=== PATIENT | male | born 1935 | race African-American/Black ===

== ENCOUNTER 2023-01-01 09:49 | Inpatient (IN) | payer BC, MEDICARE ==
[~2023-01-01] VITALS: Ht 170.2 cm; Wt 68.0 kg
[2023-01-01 11:50] LABS: HEMATOCRIT. 41.6 % (42.0-52.0); MEAN CORPUSCULAR HEMOGLOBIN 32.1 pg (28.0-32.0); MEAN CORPUSCULAR VOLUME 95.6 fL (80.0-94.0); MEAN PLATELET VOLUME 9.5 fl (7.4-10.4); PLATELET 158 x1000/uL (130-400); RED BLOOD CELL COUNT 4.35 mill/uL (4.7-6.1); RED CELL DISTRIBUTION WIDTH 14.4 % (11.6-14.6)
[2023-01-01 12:05] LABS: INR 1.1; PROTHROMBIN TIME 11.9 sec (9.6-11.0)
[2023-01-01 12:13] LABS: PLATELET ESTIMATE NORMAL
[2023-01-01 13:11] LABS: CHLORIDE 108 mEq/L (98-107)
[2023-01-01 14:18] LABS: ETHANOL BLOOD < 10 mg/dL
[2023-01-01] MEDS ORDERED: FUROSEMIDE 40MG/4ML VIAL IVP ONE (14:30)
[2023-01-01] MEDS ORDERED: AZITHROMYCIN 500 MG TABLET PO ONE (14:30)
[2023-01-01] MEDS ORDERED: CEFTRIAXONE 1 G PREMIX 50 ML IV ONE (14:30)
[2023-01-01] MEDS ORDERED: ASPIRIN 325MG EC TABLET PO ONE (14:30)
[2023-01-01] MEDS ORDERED: DOCUSATE SODIUM 100MG CAPSULE PO PRN (19:45)
[2023-01-01] MEDS ORDERED: CLONIDINE 0.1MG TABLET PO PRN (19:45)
[2023-01-01] MEDS ORDERED: ONDANSETRON HCL 4MG/2ML INJ IV PRN (19:45)
[2023-01-01] MEDS ORDERED: DEXTROSE 50% WATER 50ML SYRINGE IV PRN (19:45)
[2023-01-01] MEDS ORDERED: MAGNESIUM/ALUMINUM HYDROXIDE/SIMETHICONE 30ML UDC PO PRN (19:45)
[2023-01-01] MEDS ORDERED: DIPHENHYDRAMINE 50MG/ML VIAL IV PRN (19:45)
[2023-01-01] MEDS ORDERED: IPRATROPIUM/ALBUTEROL 0.5-3(2.5)MG/3ML NEB HHN PRN (19:45)
[2023-01-01] MEDS ORDERED: GUAIFENESIN 200MG/10ML SUGAR FREE UDC PO PRN (19:45)
[2023-01-01] MEDS ORDERED: ACETAMINOPHEN 325MG TABLET PO PRN ×2 (19:45)
[2023-01-01] MEDS ORDERED: AMLODIPINE 10MG TABLET PO SCH (20:00)
[2023-01-01] MEDS ORDERED: AZITHROMYCIN 500 MG TABLET PO NR (20:15)
[2023-01-01] MEDS ORDERED: CEFTRIAXONE 1 G PREMIX 50 ML IV SCH (20:15)
[2023-01-01] MEDS ORDERED: CEFTRIAXONE 1 G PREMIX 50 ML IV NR (20:15)
[2023-01-01] MEDS ORDERED: AZITHROMYCIN 500MG/250ML 250 ML IV NR (20:15)
[2023-01-01] MEDS: NITROGLYCERIN OINT 1GM/INCH UDPKT TD NR ×2 (20:56→20:59)
[2023-01-01] MEDS: FUROSEMIDE 40MG/4ML VIAL IV SCH (20:57)
[2023-01-01 21:15] LABS: CLARITY URINE CLEAR (CLEAR); COLOR URINE DARK YELLOW (YELLOW); KETONES URINE TRACE (NEGATIVE); LEUKOCYTE ESTERASE URINE NEGATIVE (NEGATIVE); NITRITE URINE NEGATIVE (NEGATIVE); OCCULT BLOOD URINE NEGATIVE (NEGATIVE); PROTEIN URINE 2+ (NEGATIVE)
[2023-01-01 21:35] LABS: *AMPHETAMINES SCREEN URINE NEGATIVE (NEGATIVE); *BARBITURATES SCREEN URINE NEGATIVE (NEGATIVE); *BENZODIAZEPINES SCREEN URINE NEGATIVE (NEGATIVE); *COCAINE SCREEN URINE NEGATIVE (NEGATIVE); CANNABINOID URINE SCREEN NEGATIVE (NEGATIVE); METHADONE URINE SCREEN NEGATIVE (NEGATIVE); OPIATES URINE SCREEN NEGATIVE (NEGATIVE); PHENCYCLIDINE URINE SCREEN NEGATIVE (NEGATIVE)
[2023-01-01] MEDS: ENOXAPARIN 40MG/0.4ML SYR SUBCUT SCH (22:20)
[2023-01-01] MEDS: ATORVASTATIN CALCIUM 40MG TABLET PO SCH (22:31)
[2023-01-01] MEDS: BLOOD SUGAR DIAGNOSTIC STRIP TEST SCH (23:09)
[2023-01-02] VITALS (8 sets, daily range): BP systolic 122–163; BP diastolic 64–107
[2023-01-02] MEDS: INSULIN LISPRO 100 UNITS/ML SUBCUT SCH ×5 (00:37→22:07)
[2023-01-02] MEDS: FAMOTIDINE 20MG TABLET PO SCH ×2 (01:00→22:12)
[2023-01-02 02:55] LABS: CREATINE KINASE MB FRACTION 4.2 ng/mL (0.5-3.6)
[2023-01-02] MEDS ORDERED: PIPERACILLIN/TAZOBACTAM 3.375 G in DEXTROSE 5% WATER 50 ML IV SCH (06:00)
[2023-01-02 06:43] LABS: BASOPHILS % 0.7 % (0.0-2.0); EOSINOPHILS % 0.9 % (0.0-5.0); HEMOGLOBIN. 12.6 g/dL (14.0-18.0); LYMPHOCYTES % 8.8 % (20.0-50.0); MEAN CORPUSCULAR HEMOGLOBIN 32.4 pg (28.0-32.0); MEAN CORPUSCULAR VOLUME 95.1 fL (80.0-94.0); MEAN PLATELET VOLUME 10.2 fl (7.4-10.4); MONOCYTES % 9.8 % (2.0-8.0); NEUTROPHILS % 79.8 % (40.0-76.0); PLATELET 144 x1000/uL (130-400); RED BLOOD CELL COUNT 3.89 mill/uL (4.7-6.1); RED CELL DISTRIBUTION WIDTH 14.1 % (11.6-14.6)
[2023-01-02] MEDS: BLOOD SUGAR DIAGNOSTIC STRIP TEST SCH ×4 (06:50→22:07)
[2023-01-02 07:17] LABS: CHLORIDE 105 mEq/L (98-107); CREATINE KINASE 147 IU/L (39-308); CREATINE KINASE MB FRACTION 4.3 ng/mL (0.5-3.6); HDL CHOLESTEROL 55 mg/dL (40-59); LDL CHOLESTEROL 53 mg/dL (5-100); T4 FREE 1.36 ng/dL (0.76-1.46)
[2023-01-02] MEDS: ASPIRIN 81MG EC TABLET PO SCH (08:07)
[2023-01-02] MEDS: FUROSEMIDE 40MG/4ML VIAL IV SCH ×2 (08:07→18:18)
[2023-01-02] MEDS ORDERED: AMLODIPINE 5MG TABLET PO SCH ×2 (09:00→14:00)
[2023-01-02] MEDS: CEFTRIAXONE 1,000 MG in DEXTROSE 5% WATER 50 ML IV SCH (13:37)
[2023-01-02] MEDS ORDERED: AZITHROMYCIN 500MG in DEXTROSE 5% WATER 250ML IV SCH (14:00)
[2023-01-02] MEDS ORDERED: NON FORMULARY PATIENT HOME MED XX SCH (15:45)
[2023-01-02] MEDS ORDERED: NAPR-681 PO (20:32)
[2023-01-02] MEDS ORDERED: SITA50TA3 PO (20:32)
[2023-01-02] MEDS ORDERED: DOXA4TAB3 PO (20:33)
[2023-01-02] MEDS ORDERED: PRAV40TA58 PO (20:33)
[2023-01-02] MEDS ORDERED: BIMA2.5D4 EACHEYE (20:34)
[2023-01-02] MEDS: CARVEDILOL 3.125 MG TABLET PO SCH (22:12)
[2023-01-02] MEDS: ATORVASTATIN CALCIUM 40MG TABLET PO SCH (22:12)
[2023-01-02] MEDS: ENOXAPARIN 40MG/0.4ML SYR SUBCUT SCH (22:14)
[2023-01-03] VITALS (7 sets, daily range): BP systolic 124–163; BP diastolic 62–98
[2023-01-03] MEDS: BLOOD SUGAR DIAGNOSTIC STRIP TEST SCH ×4 (06:31→21:38)
[2023-01-03] MEDS: INSULIN LISPRO 100 UNITS/ML SUBCUT SCH ×4 (07:20→21:00)
[2023-01-03 08:27] LABS: BASOPHILS % 0.7 % (0.0-2.0); EOSINOPHILS % 1.8 % (0.0-5.0); HEMATOCRIT. 38.7 % (42.0-52.0); HEMOGLOBIN. 13.1 g/dL (14.0-18.0); LYMPHOCYTES % 7.4 % (20.0-50.0); MEAN CORPUSCULAR HEMOGLOBIN 31.9 pg (28.0-32.0); MEAN CORPUSCULAR VOLUME 94.2 fL (80.0-94.0); MEAN PLATELET VOLUME 10.7 fl (7.4-10.4); MONOCYTES % 8.2 % (2.0-8.0); NEUTROPHILS % 81.9 % (40.0-76.0); PLATELET 146 x1000/uL (130-400); RED BLOOD CELL COUNT 4.11 mill/uL (4.7-6.1); RED CELL DISTRIBUTION WIDTH 13.9 % (11.6-14.6)
[2023-01-03] MEDS: ASPIRIN 81MG EC TABLET PO SCH (08:40)
[2023-01-03] MEDS: FUROSEMIDE 40MG/4ML VIAL IV SCH ×2 (08:40→17:47)
[2023-01-03] MEDS: AMLODIPINE 5MG TABLET PO SCH (08:41)
[2023-01-03] MEDS: CARVEDILOL 3.125 MG TABLET PO SCH ×2 (08:41→21:00)
[2023-01-03 08:44] LABS: CHLORIDE 100 mEq/L (98-107)
[2023-01-03 08:54] LABS: PHOSPHORUS 3.9 mg/dL (2.5-4.9)
[2023-01-03] MEDS: CEFTRIAXONE 1,000 MG in DEXTROSE 5% WATER 50 ML IV SCH (13:07)
[2023-01-03] MEDS ORDERED: POTASSIUM CHLORIDE 20MEQ TABLET SR PO NR (13:15)
[2023-01-03] MEDS: SPIRONOLACTONE 25MG TABLET PO SCH (13:57)
[2023-01-03] MEDS ORDERED: AZITHROMYCIN 500 MG TABLET PO SCH (14:00)
[2023-01-03] MEDS: ATORVASTATIN CALCIUM 40MG TABLET PO SCH (21:22)
[2023-01-03] MEDS: FAMOTIDINE 20MG TABLET PO SCH (21:22)
[2023-01-03] MEDS: ENOXAPARIN 40MG/0.4ML SYR SUBCUT SCH (21:31)
[2023-01-04] VITALS: BP 135/82
[2023-01-04 04:00] VITALS: BP 124/69
[2023-01-04] MEDS: BLOOD SUGAR DIAGNOSTIC STRIP TEST SCH ×2 (06:16→11:50)
[2023-01-04 06:54] LABS: BASOPHILS % 0.5 % (0.0-2.0); EOSINOPHILS % 2.2 % (0.0-5.0); HEMATOCRIT. 39.5 % (42.0-52.0); HEMOGLOBIN. 13.3 g/dL (14.0-18.0); LYMPHOCYTES % 7.6 % (20.0-50.0); MEAN CORPUSCULAR HEMOGLOBIN 31.9 pg (28.0-32.0); MEAN CORPUSCULAR VOLUME 94.6 fL (80.0-94.0); MEAN PLATELET VOLUME 10.2 fl (7.4-10.4); MONOCYTES % 10.7 % (2.0-8.0); PLATELET 148 x1000/uL (130-400); RED BLOOD CELL COUNT 4.17 mill/uL (4.7-6.1); RED CELL DISTRIBUTION WIDTH 14.1 % (11.6-14.6)
[2023-01-04 07:19] LABS: CHLORIDE 96 mEq/L (98-107)
[2023-01-04] MEDS: INSULIN LISPRO 100 UNITS/ML SUBCUT SCH ×2 (07:20→12:02)
[2023-01-04 07:22] LABS: PHOSPHORUS 3.9 mg/dL (2.5-4.9)
[2023-01-04 08:00] VITALS: BP 147/51
[2023-01-04] MEDS: SPIRONOLACTONE 25MG TABLET PO SCH (08:30)
[2023-01-04] MEDS: CARVEDILOL 3.125 MG TABLET PO SCH (08:31)
[2023-01-04] MEDS: AMLODIPINE 5MG TABLET PO SCH (08:31)
[2023-01-04] MEDS: ASPIRIN 81MG EC TABLET PO SCH (08:31)
[2023-01-04] MEDS: FUROSEMIDE 40MG/4ML VIAL IV SCH (08:31)
[2023-01-04] MEDS ORDERED: ATOR20TA MT (10:56)
[2023-01-04] MEDS ORDERED: AMLO5TAB4 MT (10:56)
[2023-01-04] MEDS ORDERED: FURO-151 MT (10:56)
[2023-01-04] MEDS ORDERED: ASPI-1497 PO (10:56)
[2023-01-04] MEDS ORDERED: COR3 MT (10:56)
[2023-01-04 11:39] VITALS: BP 124/69
[2023-01-04] MEDS ORDERED: POTASSIUM CHLORIDE 20MEQ TABLET SR PO NR (12:30)
== END 2023-01-04 14:58 | disposition home or self-care (01) | DRG 291 ==
LOC: ER 09:49 → MICUSO 16:43 → EDBEDREQ 16:47 → EDBEDREQTM 16:47 → 3WST 23:49
PROVIDERS: ADMIT Hospitalist; ATTEND Hospitalist
DX: I11.0 Hypertensive heart disease with heart failure (principal); I50.23 Acute on chronic systolic (congestive) heart failure; J18.9 Pneumonia, unspecified organism; I42.9 Cardiomyopathy, unspecified; E11.9 Type 2 diabetes mellitus without complications; M19.90 Unspecified osteoarthritis, unspecified site; Z20.822 Contact with and (suspected) exposure to COVID-19; E78.00 Pure hypercholesterolemia, unspecified; E88.09 Other disorders of plasma-protein metabolism, not elsewhere classified; E87.6 Hypokalemia; I07.1 Rheumatic tricuspid insufficiency; Z87.891 Personal history of nicotine dependence
CPT/HCPCS: 36415; 71045; 80048; 80053; 80061; 80305; 80320; 81003; 82550; 82553; 82962; 83036; 83605; 83735; 83880; 84100; 84145; 84439; 84443; 84484; 85025; 87426; 87804; 93005; 93306; 93970; 94640; 99285; J0456; J0696; J1650; J1815; J1940; J2543; J7060; A4315; G0480